=== PATIENT | female | born 1970 | race Two or more races ===

== ENCOUNTER 2017-06-01 19:55 | Emergency (ER) | payer MEDICAID ==
[2017-06-01 20:51] LABS: BASOPHIL % 0.4 % (0-2); PLATELET COUNT 307 x10^3mcL (130-400); RED CELL DISTRIBUTION WIDTH 13.3 % (11.5-14.5)
[2017-06-01 20:53] LABS: CALCIUM 8.8 mg/dL (8.5-10.1); CARBON DIOXIDE 25.1 mmol/L (21-32); CHLORIDE SERUM 102 mmol/L (98-107); CREATININE SERUM 0.7 mg/dL (0.6-1.0); GFR1 > 60 mL/min; GLUCOSE SERUM 108 mg/dL (74-106); POTASSIUM SERUM 3.8 mmol/L (3.5-5.1); SODIUM SERUM 139 mmol/L (136-145)
[2017-06-01 20:57] LABS: ALBUMIN 3.8 g/dL (3.4-5.0); ALKALINE PHOSPHATASE 86 U/L (46-116); ALT/SGPT 19 U/L (14-59); AST/SGOT 17 U/L (15-37); BILIRUBIN TOTAL 0.31 mg/dL (0.20-1.00); TOTAL PROTEIN, SERUM 8.1 g/dL (6.4-8.2)
[2017-06-01 21:31] LABS: CK-MB < 0.5 ng/mL (0-3.6); CREATINE KINASE 47 U/L (26-192)
[2017-06-01 22:38] VITALS: BP 126/89
== END 2017-06-01 22:38 | disposition home or self-care (01) ==
LOC: ED 19:55
PROVIDERS: Emergency Medicine
DX: R07.9 Chest pain, unspecified (principal)
CPT/HCPCS: 83880; 85378; J1885; Q0092

== ENCOUNTER 2018-01-07 06:41 | Emergency (ER) | payer MEDICAID ==
[~2018-01-07] VITALS: Ht 152.4 cm; Wt 81.8 kg
[2018-01-07 06:46] VITALS: Ht 152.4 cm; Wt 81.8 kg
[2018-01-07 08:17] VITALS: BP 132/76
== END 2018-01-07 08:18 | disposition home or self-care (01) ==
LOC: ED 06:41
DX: N39.0 Urinary tract infection, site not specified (principal)
CPT/HCPCS: J0696